=== PATIENT | female | born 1950 | race Two or more races ===

== ENCOUNTER 2017-03-05 14:00 | Outpatient (CLI) | payer MEDICARE, OTHER ==
--- NOTE | 2017-03-05 14:54 | Diagnostic Imaging Report ---
Indication: Cough Technique: AP and lateral views of the chest. Findings: Comparison: None Thoracic kyphosis mildly exaggerated. Disc marginal osteophytes lower thoracic/upper lumbar spine. The extra pulmonary soft tissues, cardiomediastinal silhouette, pulmonary vasculature and parenchyma, and pleural surfaces are unremarkable. IMPRESSION: Degenerative spondylosis and mild exaggeration of kyphosis Otherwise negative AP and lateral chest radiographs
== END 2017-03-05 15:50 | disposition home or self-care (01) ==
LOC: RAD 14:00
DX: R05 Cough (principal); M47.896 Other spondylosis, lumbar region; M40.294 Other kyphosis, thoracic region
CPT/HCPCS: 71020